=== PATIENT | female | born 1960 | race Caucasian/White ===

== ENCOUNTER 2017-10-09 22:56 | Emergency (ER) | payer OTHER ==
[~2017-10-09] VITALS: Ht 167.6 cm; Wt 74.8 kg
[2017-10-09 23:25] VITALS: BP_SYST 118
[2017-10-09] MEDS ORDERED: LISI40TA4 PO (23:29)
[2017-10-10] MEDS ORDERED: KETOROLAC TROMETHAMINE 60 MG/2 ML VIAL IM ONE (00:45)
[2017-10-10 01:24] VITALS: BP_SYST 122
== END 2017-10-10 01:24 | disposition home or self-care (01) ==
LOC: SED 22:56
DX: S13.4XXA Sprain of ligaments of cervical spine, initial encounter (principal); S00.12XA Contusion of left eyelid and periocular area, initial encounter; W19.XXXA Unspecified fall, initial encounter; Y93.89 Activity, other specified; Y92.89 Other specified places as the place of occurrence of the external cause; Y99.8 Other external cause status
CPT/HCPCS: 96372; 99283; J1885

== ENCOUNTER 2018-12-19 15:55 | Emergency (ER) | payer OTHER ==
[~2018-12-19] VITALS: Ht 167.6 cm; Wt 79.4 kg
[~2018-12-19 15:55] MED LIST: LISI40TA4 PO
[2018-12-19 16:05] VITALS: BP_SYST 148
[2018-12-19] MEDS ORDERED: HYDROcodone/ACETAMIN 5-325 MG TAB (NORCO/ VICODIN) PO ONE (17:45)
[2018-12-19] MEDS ORDERED: ERYTHROMYCIN BASE 0.5% EYE OINT...G. OP ONE ×2 (17:45→18:00)
[2018-12-19 18:06] VITALS: BP_SYST 148
== END 2018-12-19 18:06 | disposition home or self-care (01) ==
LOC: SED 15:55
DX: H10.9 Unspecified conjunctivitis (principal); I10 Essential (primary) hypertension
CPT/HCPCS: 99284